=== PATIENT | male | born 1950 | race Caucasian/White ===

== ENCOUNTER 2017-12-27 08:55 | Inpatient (IN) | payer MEDICARE, OTHER ==
[2017-12-27] MEDS ORDERED: FLUMAZENIL 0.5 MG INJ (09:51)
[2017-12-27] MEDS ORDERED: FUROSEMIDE 40 MG INJ (09:57)
[2017-12-27] MEDS ORDERED: ONDANSETRON 4 MG INJ ×3 (10:16→16:20)
[2017-12-27] MEDS ORDERED: HEPARIN 1000 UNITS/ML 10 ML INJ (13:28)
[2017-12-27] MEDS ORDERED: IODIXANOL LOCM 100 ML BTL ×3 (13:28→14:49)
[2017-12-27] MEDS ORDERED: VERAPAMIL 5 MG INJ (13:28)
[2017-12-27] MEDS ORDERED: LIDOCAINE 1% (MDV) 20 ML INJ (13:28)
[2017-12-27] MEDS ORDERED: NITROGLYCERIN (IC) 100 MCG/ML INJ (13:29)
[2017-12-27 13:43] LABS: AADO2 Arterial 84.8 mmHg (7.0-24.0); Arterial Base Excess 4.2 mmol/L (-3.0-3); Arterial Blood Gas Oxygen Sat 96.2 mmHG (95.0-98.0); Arterial COHb 0.3 % (0.0-3.0); Arterial Fraction of Oxyhgb 95.7 % (93.0-99.0); Arterial HCO3 28.9 mmol/L (22.0-26.0); Arterial MetHb 0.2 % (0.0-1.5); Arterial Total Hemglobin 13.7 g/dl (12.0-18.0); Arterial pCO2 43.9 mmhg (35-45); MODE NASAL CANNULA; Site LB
[2017-12-27] MEDS ORDERED: FENTAnyl 50 MCG/ML VIAL (14:18)
[2017-12-27] MEDS ORDERED: MIDAZOLAM 1 MG/ML 2 ML INJ (14:18)
[2017-12-27] MEDS ORDERED: BIVALIRUDIN 250MG /NS 50 ML 50 ML IVPB (14:18)
[2017-12-27] MEDS ORDERED: CLOPIDOGREL 300 MG TAB ×3 (14:27→15:52)
[2017-12-27] MEDS ORDERED: ASPIRIN 325 MG TAB ×2 (14:54→15:53)
[2017-12-27] MEDS: ONDANSETRON 4 MG INJ IV (16:21)
[2017-12-27] MEDS: ASPIRIN 325 MG TAB PO (16:24)
[2017-12-27] MEDS: CLOPIDOGREL 75 MG TAB PO (16:25)
[2017-12-27] MEDS ORDERED: PANTOPRAZOLE (EC) 40 MG TAB PO (16:39)
[2017-12-27] MEDS: PANTOPRAZOLE 40 MG INJ IV (17:16)
[2017-12-27 19:55] LABS: ADD UMIC NO; UR ASCORBIC ACID NEGATIVE (NEGATIVE); UR BILIRUBIN (Dip) NEGATIVE (NEGATIVE); UR BLOOD (Dip) NEGATIVE (NEGATIVE); UR CLARITY CLEAR (CLEAR); UR COLOR STRAW (YELLOW); UR GLUCOSE (Dip) NEGATIVE (NEGATIVE); UR KETONES (Dip) TRACE mg/dL (NEGATIVE); UR LEUKOCYTE ESTERASE (Dip) NEGATIVE Leu/ul (NEGATIVE); UR NITRITE (Dip) NEGATIVE (NEGATIVE); UR SPECIFIC GRAVITY (Dip) 1.042 (1.003-1.030); UR TOTAL PROTEIN (Dip) NEGATIVE (NEGATIVE); UR UROBILINOGEN (Dip) NEGATIVE (NEGATIVE)
[2017-12-27 20:20] LABS: SODIUM,URINE RANDOM 118 mmol/L (30-90)
[2017-12-27 20:20] LABS: CREATININE,URINE RANDOM 41.65 mg/dl (20-370)
[2017-12-27] MEDS: ATORVASTATIN 80 MG TAB PO (21:40)
[2017-12-27] MEDS: TAMSULOSIN (SR) 0.4 MG CAP PO (21:40)
[2017-12-27] MEDS: HYDROmorphONE 2 MG TAB PO (23:13)
[2017-12-28] MEDS: ALBUTEROL/IPRATROPIUM (NEB) 3 ML AMP HHN (00:30)
[2017-12-28] MEDS: LEVOTHYROXINE 175 MCG TAB PO ×2 (05:33→08:32)
[2017-12-28] MEDS: PANTOPRAZOLE 40 MG INJ IV (05:33)
[2017-12-28] MEDS: ASPIRIN 81 MG TAB PO (08:32)
[2017-12-28] MEDS: CLOPIDOGREL 75 MG TAB PO (08:32)
[2017-12-28] MEDS: HYDROCODONE/APAP (5/325) TAB PO ×3 (08:32→20:38)
[2017-12-28] MEDS: FAMOTIDINE 20 MG TAB PO ×2 (08:32→20:44)
[2017-12-28] MEDS: FUROSEMIDE 20 MG INJ IV (09:56)
[2017-12-28 09:58] LABS: ADD MAN DIFF? NO
[2017-12-28 10:05] LABS: WHITE BLOOD COUNT 9.6 10^3/ul (4.8-10.8)
[2017-12-28 10:05] LABS: BASOPHILS % 0.2 % (0.0-2.0); EOSINOPHILS # 0.1 10^3/ul (0.0-0.5); EOSINOPHILS % 0.7 % (0.0-7.0); HEMATOCRIT 36.2 % (42.0-52.0); LYMPHOCYTES # 1.4 10^3/ul (0.8-2.9); LYMPHOCYTES % 14.2 % (15.0-51.0); MEAN CORPUSCULAR HGB CONC 33.1 g/dl (32.0-37.0); MEAN CORPUSCULAR VOLUME 84.6 fl (82.0-101.0); MEAN PLATELET VOLUME 10.5 fl (7.4-10.4); MONOCYTE # 0.7 10^3/ul (0.3-0.9); MONOCYTES % 6.9 % (0.0-11.0); NEUTROPHIL # 7.4 10^3/ul (1.6-7.5); NEUTROPHILS % 77.3 % (39.0-77.0); PLATELET COUNT 188 10^3/UL (140-415); RED BLOOD COUNT 4.28 10^6/ul (4.70-6.10); RED CELL DISTRIBUTION WIDTH 14.8 % (11.5-14.5)
[2017-12-28 10:25] LABS: ANION GAP 11 (8-16); BLOOD UREA NITROGEN 12 mg/dl (7-20); CALCIUM 8.3 mg/dl (8.4-10.2); CARBON DIOXIDE 30 mmol/L (21-31); CHLORIDE 97 mmol/L (97-110); CREATININE 1.18 mg/dl (0.61-1.24); GLUCOSE 156 mg/dl (70-220); PHOSPHORUS 2.6 mg/dl (2.5-4.9); POTASSIUM 3.2 mmol/L (3.5-5.1); SODIUM 135 mmol/L (135-144)
[2017-12-28] MEDS: POTASSIUM CHLORIDE (SR) 20 MEQ TAB PO (13:11)
[2017-12-28] MEDS: POTASSIUM CHLORIDE 20 MEQ POWDER FOR ORAL SOLN PO (13:20)
[2017-12-28 13:46] LABS: ALANINE AMINOTRANSFERASE 36 IU/L (13-69); ALBUMIN 3.2 g/dl (3.3-4.9); ALKALINE PHOSPHATASE 41 IU/L (42-121); ASPARTATE AMINO TRANSFERASE 49 IU/L (15-46); BILIRUBIN,INDIRECT 0.5 mg/dl (0-1.1); BILIRUBIN,TOTAL 0.5 mg/dl (0.2-1.3); TOTAL PROTEIN 6.2 g/dl (6.1-8.1)
[2017-12-28] MEDS: ATORVASTATIN 80 MG TAB PO (20:37)
[2017-12-28] MEDS: TAMSULOSIN (SR) 0.4 MG CAP PO (20:37)
[2017-12-28] MEDS ORDERED: VITAMIN A & D 5 GM OINT PACKET TOP (20:48)
[2017-12-28] MEDS: ZOLPIDEM 5 MG TAB PO (22:25)
[2017-12-29] MEDS: HYDROCODONE/APAP (5/325) TAB PO ×3 (04:37→20:48)
[2017-12-29] MEDS: LEVOTHYROXINE 175 MCG TAB PO (06:44)
[2017-12-29] MEDS: PANTOPRAZOLE 40 MG INJ IV (06:44)
[2017-12-29 08:24] LABS: ADD MAN DIFF? NO
[2017-12-29 08:30] LABS: BASOPHIL # 0.1 10^3/ul (0.0-0.1); BASOPHILS % 0.7 % (0.0-2.0); EOSINOPHILS # 0.2 10^3/ul (0.0-0.5); EOSINOPHILS % 2.4 % (0.0-7.0); HEMATOCRIT 36.7 % (42.0-52.0); HEMOGLOBIN 12.1 g/dl (14.0-18.0); LYMPHOCYTES # 1.7 10^3/ul (0.8-2.9); LYMPHOCYTES % 22.8 % (15.0-51.0); MEAN CORPUSCULAR HEMOGLOBIN 27.9 pg (29.0-33.0); MEAN CORPUSCULAR VOLUME 84.6 fl (82.0-101.0); MEAN PLATELET VOLUME 10.5 fl (7.4-10.4); MONOCYTE # 0.6 10^3/ul (0.3-0.9); MONOCYTES % 7.4 % (0.0-11.0); NEUTROPHIL # 4.9 10^3/ul (1.6-7.5); NEUTROPHILS % 65.8 % (39.0-77.0); PLATELET COUNT 173 10^3/UL (140-415); RED BLOOD COUNT 4.34 10^6/ul (4.70-6.10); RED CELL DISTRIBUTION WIDTH 14.2 % (11.5-14.5)
[2017-12-29 08:30] LABS: WHITE BLOOD COUNT 7.5 10^3/ul (4.8-10.8)
[2017-12-29 08:48] LABS: ANION GAP 12 (8-16); BLOOD UREA NITROGEN 12 mg/dl (7-20); CALCIUM 8.5 mg/dl (8.4-10.2); CARBON DIOXIDE 32 mmol/L (21-31); CHLORIDE 97 mmol/L (97-110); CREATININE 1.18 mg/dl (0.61-1.24); GLUCOSE 124 mg/dl (70-220); MAGNESIUM 2.1 mg/dl (1.7-2.5); PHOSPHORUS 3.2 mg/dl (2.5-4.9); POTASSIUM 3.2 mmol/L (3.5-5.1); SODIUM 138 mmol/L (135-144)
[2017-12-29] MEDS: FAMOTIDINE 20 MG TAB PO ×2 (08:59→20:48)
[2017-12-29] MEDS: ASPIRIN 81 MG TAB PO (09:00)
[2017-12-29] MEDS: CLOPIDOGREL 75 MG TAB PO (09:00)
[2017-12-29] MEDS: POTASSIUM CHLORIDE (SR) 20 MEQ TAB PO (10:06)
[2017-12-29] MEDS: ALBUTEROL/IPRATROPIUM (NEB) 3 ML AMP HHN (10:10)
[2017-12-29] MEDS: LACTULOSE 30ML CUP PO (14:11)
[2017-12-29] MEDS: LISINOPRIL 5 MG TAB PO (14:11)
[2017-12-29] MEDS: AL HYDROX/MG HYDROX/SIMETH 30 ML CUP PO (14:16)
[2017-12-29 14:27] LABS: CREATININE, RANDOM URINE 49 mg/dL (20-370); MICROALBUMIN <0.2 mg/dL; MICROALBUMIN/CREATININE RATIO NOTE (<30)
[2017-12-29] MEDS: ATORVASTATIN 80 MG TAB PO (20:47)
[2017-12-29] MEDS: TAMSULOSIN (SR) 0.4 MG CAP PO (20:48)
[2017-12-30] MEDS: ZOLPIDEM 5 MG TAB PO (00:18)
[2017-12-30] MEDS: LEVOTHYROXINE 175 MCG TAB PO (06:09)
[2017-12-30] MEDS: PANTOPRAZOLE 40 MG INJ IV (06:09)
[2017-12-30] MEDS: INFLUENZA VIRUS VACCINE 0.5 ML (DISPENSING) IM* (08:48)
[2017-12-30] MEDS: CLOPIDOGREL 75 MG TAB PO (08:49)
[2017-12-30] MEDS: FAMOTIDINE 20 MG TAB PO (08:49)
[2017-12-30] MEDS: ASPIRIN 81 MG TAB PO (08:50)
[2017-12-30] MEDS: LISINOPRIL 5 MG TAB PO (08:50)
[2017-12-30] MEDS: AL HYDROX/MG HYDROX/SIMETH 30 ML CUP PO (12:50)
== END 2017-12-30 15:30 | disposition home health service (06) | DRG 246 ==
LOC: CCL 08:55 → TEL 20:40
PROC: 027035Z Dilation of Coronary Artery, One Artery with Two Drug-eluting Intraluminal Devices, Percutaneous Approach (ICD-10-PCS; principal; 2017-12-27 10:30)
PROC: 4A023N7 Measurement of Cardiac Sampling and Pressure, Left Heart, Percutaneous Approach (ICD-10-PCS; 2017-12-27 10:30)
PROC: B211YZZ Fluoroscopy of Multiple Coronary Arteries using Other Contrast (ICD-10-PCS; 2017-12-27 10:30)
DX: I21.4 Non-ST elevation (NSTEMI) myocardial infarction (principal); I50.33 Acute on chronic diastolic (congestive) heart failure; J96.00 Acute respiratory failure, unspecified whether with hypoxia or hypercapnia; N18.4 Chronic kidney disease, stage 4 (severe); E66.2 Morbid (severe) obesity with alveolar hypoventilation; Z68.41 Body mass index [BMI] 40.0-44.9, adult; I13.0 Hypertensive heart and chronic kidney disease with heart failure and stage 1 through stage 4 chronic kidney disease, or unspecified chronic kidney disease; J44.9 Chronic obstructive pulmonary disease, unspecified; I25.10 Atherosclerotic heart disease of native coronary artery without angina pectoris; E03.9 Hypothyroidism, unspecified; K21.9 Gastro-esophageal reflux disease without esophagitis; Z90.5 Acquired absence of kidney; Z95.5 Presence of coronary angioplasty implant and graft; Z85.528 Personal history of other malignant neoplasm of kidney; Z86.73 Personal history of transient ischemic attack (TIA), and cerebral infarction without residual deficits
CPT/HCPCS: 36600; 71045; 80048; 80076; 81003; 82043; 82803; 83735; 84100; 84155; 84300; 85025; 90686; 93005; 93306; 93458; 94640; 94664; 97162; J1940